=== PATIENT | male | born 1970 | race Caucasian/White ===

== ENCOUNTER 2020-08-30 17:35 | Emergency (ER) | payer OTHER, SELFPAY ==
[~2020-08-30] VITALS: Ht 182.9 cm; Wt 84.8 kg
[2020-08-30 17:38] VITALS: BP_SYST 117
[2020-08-30 20:32] LABS: CALCIUM 8.9 mg/dL (8.4-11.0); CREATININE 2.18 mg/dL (0.55-1.30); POTASSIUM 3.9 mmol/L (3.5-5.1)
[2020-08-30 20:39] LABS: ALBUMIN 3.8 g/dL (3.4-4.8); TOTAL BILIRUBIN 2.2 mg/dL (0.0-1.0)
[2020-08-30 21:07] LABS: BASOPHILS # (AUTO) 0.1 K/uL (0.0-0.2); BASOPHILS % (AUTO) 0.6 % (0.0-2.0); HEMATOCRIT 43.1 % (36-54); HEMOGLOBIN 14.9 g/dL (14.0-18.0); LYMPHOCYTES # (AUTO) 0.8 K/uL (1.0-5.5); LYMPHOCYTES % (AUTO) 5.3 % (20.5-51.5); MEAN CORPUSCULAR HEMOGLOBIN 34 pg (27-31); MEAN CORPUSCULAR HGB CONC 35 % (32-36); MEAN CORPUSCULAR VOLUME 98 fL (79.0-98.0); MONOCYTES # (AUTO) 0.8 K/uL (0.0-1.0); MONOCYTES % (AUTO) 5.9 % (1.7-9.3); NEUTROPHILS # (AUTO) 12.7 K/uL (1.8-7.7); NEUTROPHILS % (AUTO) 88.2 % (40.0-70.0); PLATELET COUNT (AUTO) 188 K/uL (130-430); RED BLOOD CELL COUNT(AUTO) 4.39 MIL/uL (4.2-6.2); RED CELL DISTRIBUTION WIDTH 12.8 % (9.0-15.0); WHITE BLOOD COUNT (AUTO) 14.3 K/uL (4.8-10.8)
[2020-08-30 21:10] LABS: PROTHROMBIN TIME 10.3 SECS (9.5-12.5)
[2020-08-30] MEDS ORDERED: NACL 0.9% 1,000 ML IV ONE (23:00)
[2020-08-30] MEDS ORDERED: KETOROLAC TROMETHAMINE 30 MG VIAL IVP ONE (23:00)
[2020-08-31] MEDS ORDERED: MORPHINE 2 MG/ML INJ. SYRINGE IM ONE
[2020-08-31] MEDS ORDERED: ACETAMINOPHEN 500 MG TABLET PO ONE
[2020-08-31 00:38] VITALS: BP_SYST 148
== END 2020-08-31 00:38 | disposition home or self-care (01) ==
LOC: SED 17:35
DX: G40.909 Epilepsy, unspecified, not intractable, without status epilepticus (principal); R07.81 Pleurodynia; I10 Essential (primary) hypertension; F17.200 Nicotine dependence, unspecified, uncomplicated; Z20.822 Contact with and (suspected) exposure to COVID-19; W01.0XXA Fall on same level from slipping, tripping and stumbling without subsequent striking against object, initial encounter; Y93.89 Activity, other specified; Y92.89 Other specified places as the place of occurrence of the external cause; Y99.8 Other external cause status
CPT/HCPCS: 36415; 70450; 71045; 71110; 76376; 80053; 84484; 85025; 85610; 85730; 87426; 93005; 96374; 96375; 99285; G0482; J1885; J2270; J7030